=== PATIENT | male | born 1970 | race Caucasian/White ===

== ENCOUNTER 2019-01-07 20:49 | Emergency (ER) | payer SELFPAY ==
[~2019-01-07] VITALS: Ht 167.6 cm; Wt 80.9 kg
[2019-01-07 20:55] VITALS: BP 170/97
--- NOTE | 2019-01-07 20:59 | NUR ---
TO ED 09 WITH STEADY GAIT.
--- NOTE | 2019-01-07 21:08 | NUR ---
BIB SELF WITH AT BEDSIDE. CO 4-5 EPISODES OF CONFUSION THIS MORNING. PT STATES WHEN HE WAS TALKING TO HIS AND SON HE WAS UNABLE TO UNDERSTAND WHAT THEY WERE SAYING. PT ALSO STATES FEELING DIZZY DURING THESE TIMES. PT ALSO REPORTS HAVING A GARCIA THAT COMES AND GOES FOR THE PAST 3 MONTHS. PT IS A/O x 4 AT THIS TIME. NO FACIAL DROOP OR SLURRING NOTED. MADE AWARE. PT GOING TO CT NOW.
--- NOTE | 2019-01-07 21:09 | NUR ---
PT TAKEN TO CT VIA [facility].
--- NOTE | 2019-01-07 21:14 | NUR ---
BACK FROM CT. RESTING IN BED.
--- NOTE | 2019-01-07 21:52 | NUR ---
EKG PERFORMED AT BEDSIDE WITH FAMILY MEMBER PRESENT. PT COVERED IN GOWN DURING PROCEDURE.
--- NOTE | 2019-01-07 21:56 | NUR ---
EMT PERFORMING EKG AT BEDSIDE.
--- NOTE | 2019-01-07 21:59 | NUR ---
XRAY AT BEDSIDE.
--- NOTE | 2019-01-07 22:30 | NUR ---
Patient discharged with v/s stable. Written and verbal after care instructions given and explained. Patient alert, oriented and verbalized understanding of instructions. Ambulatory with steady gait. All questions addressed prior to discharge. ID band removed. Patient advised to follow up with PMD. Rx of Motrin given. Patient educated on indication of medication including possible reaction and side effects. Opportunity to ask questions provided and answered. Addendum: 01/07/19 at 2245 by [facility] Patient discharged with v/s stable. Written and verbal after care instructions given and explained. Patient alert, oriented and verbalized understanding of instructions. Ambulatory with steady gait. All questions addressed prior to discharge. ID band removed. Patient advised to follow up with [facility]. Rx of Motrin given. Patient educated on indication of medication including possible reaction and side effects. Opportunity to ask questions provided and answered.
[2019-01-07 22:43] VITALS: BP 148/96
== END 2019-01-07 22:30 | disposition home or self-care (01) ==
LOC: MED 20:49
DX: R51 Headache (principal); R07.89 Other chest pain; R42 Dizziness and giddiness
CPT/HCPCS: 70450; 71045; 93005; 99284; Q0092

== ENCOUNTER 2020-05-23 10:16 | Emergency (ER) | payer MEDICAID, SELFPAY ==
[~2020-05-23] VITALS: Ht 167.6 cm; Wt 75.3 kg
[2020-05-23 10:24] VITALS: BP 115/74
--- NOTE | 2020-05-23 10:29 | NUR ---
Pt placed in tent for covid precautions
--- NOTE | 2020-05-23 10:35 | NUR ---
49 y/o male from home c/o fever x 3 days and generalized body pain x 1 wk. Denies cough/sob. Pt states he has had not contact with +covid that he is aware of. 10/10 aching to generalized body. RR even and unlabored. Awake and alert. VSS
--- NOTE | 2020-05-23 10:48 | NUR ---
Dr Weir in tent examining pt
[2020-05-23] MEDS ORDERED: KETOROLAC 60 MG/2 ML VIAL IM ONE (10:50)
--- NOTE | 2020-05-23 10:54 | NUR ---
COVID-19 SWAB COLLECTED
[2020-05-23 11:17] VITALS: BP 115/74
--- NOTE | 2020-05-25 16:02 | NUR ---
POSITIVE RESULT OF COVID RECEIVED FROM LAB. INFETION CONTROL DEPT WILL CONTACT PATIENT.
== END 2020-05-23 11:18 | disposition home or self-care (01) ==
LOC: MED 10:16 → EEVIPCON 10:16 → MED 11:18
DX: M79.10 Myalgia, unspecified site (principal); Z20.828 Contact with and (suspected) exposure to other viral communicable diseases; R50.9 Fever, unspecified; R68.83 Chills (without fever)
CPT/HCPCS: 96372; 99283; J1885; U0003